=== PATIENT | male | born 1960 | race Two or more races ===

== ENCOUNTER 2022-10-03 08:02 | Emergency (ER) | payer OTHER ==
[~2022-10-03] VITALS: Ht 172.7 cm; Wt 104.0 kg
[2022-10-03 08:49] VITALS: BP 160/85
[2022-10-03] MEDS ORDERED: cefTRIAXone SOD 1,000 MG VL IM ONE (09:30)
[2022-10-03] MEDS ORDERED: LEVO750T64 PO (09:31)
[2022-10-03] MEDS ORDERED: PROM1SOL4 PO (09:31)
== END 2022-10-03 09:47 | disposition home or self-care (01) ==
LOC: ER 08:02
DX: J18.9 Pneumonia, unspecified organism (principal); Z20.822 Contact with and (suspected) exposure to COVID-19
CPT/HCPCS: 36415; 71045; 87426; 87804; 96372; 99284; J0696